=== PATIENT | male | born 1995 | race Hispanic/Latino ===

== ENCOUNTER 2024-11-24 00:15 | Emergency (ER) | payer OTHER ==
[2024-11-24] MEDS: Take Home: predniSONE 20 MG, 4 Tab Pack PO ONE (01:00)
== END 2024-11-24 01:07 | disposition home or self-care (01) ==
LOC: LL.ED 00:15
DX: L24.1 Irritant contact dermatitis due to oils and greases (principal)
CPT/HCPCS: 99282; A9270-GY